=== PATIENT | male | born 1985 | race Caucasian/White ===

== ENCOUNTER 2016-11-03 00:14 | Emergency (ER) | payer MEDICAID ==
[~2016-11-03] VITALS: Ht 185.4 cm; Wt 86.2 kg
--- NOTE | 2016-11-03 00:30 | NUR ---
TO BED 1 AMBULATORY C/O INTERMITENT NONRADIATING CHEST PAIN SINCE YESTERDAY. PT DENIES PAIN OR DISCOMFORT AT THIS TIME. PT AAOX4 NO ACUTE DISTRESS NOTED, RESP EVEN AND UNLABORED. SKIN WARM NONDIAPHORETIC. PLACE PT ON CARDIAC MONITORING, CONTINUOUS POX. PENDING ER MD MARMOLEJO.
--- NOTE | 2016-11-03 00:38 | NUR ---
PRACHI GARCIA AT BEDSIDE TO FRANCIE ABARCA.
[2016-11-03] MEDS ORDERED: FAMOTIDINE (20 MG) 20 MG TABLET ONE (00:48)
[2016-11-03] MEDS ORDERED: MAG HYDROX/AL HYDROX/SIMETH 30 ML UDC ONE (00:48)
[2016-11-03] MEDS ORDERED: HYDROCODONE/APAP 5/325MG 1 EACH TABLET ONE (00:48)
[2016-11-03] MEDS ORDERED: ASPIRIN 81 MG TAB.CHEW ONE (00:49)
[2016-11-03] MEDS ORDERED: NITROGLYCERIN PACKET 1 GM PACKET ONE (00:49)
--- NOTE | 2016-11-03 00:51 | NUR ---
CALIBRATION TESTER AT BEDSIDE FOR BLOOD DRAW.
--- NOTE | 2016-11-03 00:54 | NUR ---
PT MEDICATED ORDERED.
[2016-11-03] MEDS ORDERED: MAG HYDROX/AL HYDROX/SIMETH 30 ML UDC PO ONE (01:00)
[2016-11-03] MEDS ORDERED: ASPIRIN 81 MG TAB.CHEW PO ONE (01:00)
[2016-11-03] MEDS ORDERED: HYDROCODONE/APAP 5/325MG 1 EACH TABLET PO ONE (01:00)
[2016-11-03] MEDS ORDERED: NITROGLYCERIN PACKET 1 GM PACKET TD ONE (01:00)
[2016-11-03] MEDS ORDERED: FAMOTIDINE (20 MG) 20 MG TABLET PO ONE (01:00)
[2016-11-03 01:05] LABS: BASOPHILS % (AUTO) 0.3 % (0.0-2.0); EOSINOPHILS # (AUTO) 0.1 /CMM (0.0-0.7); EOSINOPHILS % (AUTO) 1.9 % (0.0-6.0); HEMATOCRIT 41 % (39-51); HEMOGLOBIN 13.7 g/dL (13.5-17.5); LYMPHOCYTES # (AUTO) 1.7 /CMM (0.8-4.8); MEAN CORPUSCULAR HEMOGLOBIN 32 PG (26.0-33.0); MEAN CORPUSCULAR HGB CONC 34 g/dl (31.0-36.0); MEAN CORPUSCULAR VOLUME 93 fL (80-96); MONOCYTES # (AUTO) 0.4 /CMM (0.1-1.30); MONOCYTES % (AUTO) 6.8 % (2.0-12.0); NEUTROPHILS # (AUTO) 3.7 /CMM (1.8-8.9); PLATELET COUNT (AUTO) 203 /CMM (150-450); RDW COEFFICIENT OF VARIATION 12.7 (11.5-15.0); RED BLOOD CELL COUNT(AUTO) 4.34 MIL/uL (4.5-6.0); WHITE BLOOD COUNT (AUTO) 5.9 K/uL (4.3-11.0)
[2016-11-03 01:17] LABS: CALCIUM, SERUM 8.5 mg/dL (8.5-10.1); CARBON DIOXIDE 30 mmol/L (21-32); CHLORIDE 104 mmol/L (98-107); CREATININE 0.9 mg/dL (0.6-1.3); GLUCOSE 96 mg/dL (74-106); SODIUM SERUM 140 mmol/L (136-145); UREA NITROGEN, BLOOD 15 mg/dL (7-18)
[2016-11-03 01:26] LABS: TROPONIN I < 0.017 ng/mL (0.00-0.056)
[2016-11-03 01:30] LABS: ALANINE AMINOTRANSFERASE 101 U/L (12-78); ALBUMIN 3.8 g/dL (3.4-5.0); ALKALINE PHOSPHATASE 66 U/L (46-116); ASPARTATE AMINOTRANSFERASE 131 U/L (15-37); B-TYPE NATRIURETIC PEPTIDE 14 PG/ML (0-125); BILIRUBIN,DIRECT 0.1 mg/dL (0.0-0.2)
--- NOTE | 2016-11-03 02:45 | NUR ---
PRACHI GARCIA AT BEDSIDE TO RE-EVAL PT.
--- NOTE | 2016-11-03 03:55 | NUR ---
REPEAT TROPONIN DRAWN BY FINANCE MGR.
--- NOTE | 2016-11-03 04:36 | NUR ---
REPEAT TROPONIN RESULT RECEIVED. ER MD MADE AWARE. PENDING DISPOSITION.
--- NOTE | 2016-11-03 04:48 | NUR ---
Patient discharged to home in stable condition. Written and verbal after care instructions given. Patient verbalizes understanding of instruction. ambulatory with a steady gait noted. pt aaox4 no acute distress noted, resp even and unlabored. pt denies pain or discomfort at this time. advice pt not to drive or operate any machinery due to pt was given narcotic medicine. pt verbalize understanding.
[2016-11-03 04:50] VITALS: BP 109/58
== END 2016-11-03 04:50 | disposition home or self-care (01) ==
LOC: ER 00:17
DX: R07.9 Chest pain, unspecified (principal); F17.200 Nicotine dependence, unspecified, uncomplicated
CPT/HCPCS: 36415; 71010-TC; 80048-TC; 80076-TC; 83880; 84484-TC; 85025-TC; A4606; Z7610

== ENCOUNTER 2017-09-10 12:02 | Emergency (ER) | payer SELFPAY ==
[~2017-09-10] VITALS: Ht 177.8 cm; Wt 83.9 kg
--- NOTE | 2017-09-10 12:02 | NUR ---
[id number] FROM GYM: CHEST PAIN. ASA 162 GIVEN IN FIELD BY EMS. NAD NOTED. PT STATES HX OF ANXIETY AND TOOK "PREWORKOUT" PRIOR TO GYM. VSS. RR EVEN AND UNLABORED. PT PLACED ON MONITOR. MD AT BEDSIDE FOR EVAL.
[2017-09-10] MEDS ORDERED: LORAZEPAM 1 MG TABLET PO ONE (12:30)
[2017-09-10] MEDS ORDERED: LORAZEPAM 1 MG TABLET ONE (12:34)
[2017-09-10 12:41] LABS: BASOPHILS % (AUTO) 0.6 % (0.0-2.0); HEMATOCRIT 42 % (39-51); HEMOGLOBIN 14.8 g/dL (13.5-17.5); LYMPHOCYTES % (AUTO) 22.4 % (20.0-44.0); MEAN CORPUSCULAR HGB CONC 35 g/dl (31.0-36.0); MEAN CORPUSCULAR VOLUME 94 fL (80-96); MONOCYTES # (AUTO) 0.3 /CMM (0.1-1.30); MONOCYTES % (AUTO) 7.3 % (2.0-12.0); NEUTROPHILS # (AUTO) 3.1 /CMM (1.8-8.9); NEUTROPHILS % (AUTO) 68.7 % (43.0-81.0); PLATELET COUNT (AUTO) 198 /CMM (150-450); RDW COEFFICIENT OF VARIATION 11.9 (11.5-15.0); RED BLOOD CELL COUNT(AUTO) 4.48 MIL/uL (4.5-6.0); WHITE BLOOD COUNT (AUTO) 4.4 K/uL (4.3-11.0)
[2017-09-10 12:52] LABS: CARBON DIOXIDE 28 mmol/L (21-32); CHLORIDE 101 mmol/L (98-107); CREATININE 1.1 mg/dL (0.6-1.3); GLUCOSE 74 mg/dL (74-106); POTASSIUM 3.8 mmol/L (3.5-5.1); SODIUM SERUM 135 mmol/L (136-145); UREA NITROGEN, BLOOD 14 mg/dL (7-18)
[2017-09-10 12:57] LABS: ALANINE AMINOTRANSFERASE 19 U/L (12-78); ALBUMIN 3.5 g/dL (3.4-5.0); ALKALINE PHOSPHATASE 57 U/L (46-116); ASPARTATE AMINOTRANSFERASE 14 U/L (15-37); BILIRUBIN,DIRECT 0.2 mg/dL (0.0-0.2); BILIRUBIN,TOTAL 1.2 mg/dL (0.2-1.0); TOTAL PROTEIN, SERUM 6.9 g/dL (6.4-8.2)
[2017-09-10 13:00] LABS: TROPONIN I < 0.017 ng/mL (0.00-0.056)
[2017-09-10 13:31] LABS: D-DIMER 0.19 mg/L(FEU (0.17-0.50)
[2017-09-10 14:20] VITALS: BP 112/68
== END 2017-09-10 14:25 | disposition home or self-care (01) ==
LOC: ER 12:08
DX: R07.89 Other chest pain (principal); F41.0 Panic disorder [episodic paroxysmal anxiety]; F17.200 Nicotine dependence, unspecified, uncomplicated; Z60.2 Problems related to living alone
CPT/HCPCS: 36415; 71045; 80048; 80076; 84484; 85025; 85378; 85730; 93005; 99285; A4606; Z7610

== ENCOUNTER 2017-12-09 22:22 | Emergency (ER) | payer SELFPAY ==
[~2017-12-09] VITALS: Ht 182.9 cm; Wt 86.2 kg
[2017-12-09 23:27] LABS: APPEARANCE,URINE CLEAR (CLEAR); BILIRUBIN,URINE NEGATIVE (NEGATIVE); BLOOD, URINE NEGATIVE Ery/uL (NEGATIVE); COLOR,URINE YELLOW (YELLOW); KETONES,URINE TRACE (NEGATIVE); LEUKOCYTE ESTERASE ,URINE NEGATIVE (NEGATIVE); NITRITE, URINE NEGATIVE (NEGATIVE); PROTEIN,URINE NEGATIVE (NEGATIVE); UGLUCOSE NEGATIVE (NEGATIVE); UROBILINOGEN,URINE 0.2 EU/dL (0.2)
[2017-12-09 23:41] LABS: CALCIUM, SERUM 8.8 mg/dL (8.5-10.1); POTASSIUM 4.1 mmol/L (3.5-5.1)
[2017-12-09 23:43] LABS: BACTERIA,URINE None seen /HPF (None Seen); MUCUS,URINE Few /LPF (None Seen); RBC,URINE NONE SEEN /HPF (0-2); SQUAMOUS EPITHELIAL CELL,UR Few /HPF (None Seen); WBC,URINE 0-2 /HPF (0-3)
[2017-12-09 23:47] LABS: ALBUMIN 4.1 g/dL (3.4-5.0); BILIRUBIN,DIRECT 0.2 mg/dL (0.0-0.2); BILIRUBIN,TOTAL 1.1 mg/dL (0.2-1.0); TOTAL PROTEIN, SERUM 7.8 g/dL (6.4-8.2)
--- NOTE | 2017-12-09 23:50 | NUR ---
TO BED 10 AA/OX4 COMPLAINING OF LT GROIN AND TESTICULAR PAIN X 3 DAYS. AMBULATED TO BED WITH STEADY GAIT. MINIMAL SWELLING TO LT TESTICAL WITH PAIN ON PALPATION. NO S/S SOB. SKIN PINK, WARM, DRY. NO N/V/D. VSS. NAD. STABLE CONDITION. WILL CONTINUE TO MONITOR.
[2017-12-09 23:51] LABS: HEMATOCRIT 44 % (39-51); HEMOGLOBIN 15.4 g/dL (13.5-17.5); MEAN CORPUSCULAR VOLUME 95 fL (80-96); RED BLOOD CELL COUNT(AUTO) 4.63 MIL/uL (4.5-6.0); WHITE BLOOD COUNT (AUTO) 7.5 K/uL (4.3-11.0)
[2017-12-09 23:52] LABS: BASOPHILS % (AUTO) 0.3 % (0.0-2.0); EOSINOPHILS % (AUTO) 1.3 % (0.0-6.0); LYMPHOCYTES % (AUTO) 22.4 % (20.0-44.0); MEAN CORPUSCULAR HEMOGLOBIN 33 PG (26.0-33.0); MEAN CORPUSCULAR HGB CONC 35 g/dl (31.0-36.0); MONOCYTES % (AUTO) 5.5 % (2.0-12.0); NEUTROPHILS % (AUTO) 70.5 % (43.0-81.0); PLATELET COUNT (AUTO) 224 /CMM (150-450); RDW COEFFICIENT OF VARIATION 12.7 (11.5-15.0)
--- NOTE | 2017-12-09 23:57 | NUR ---
US AT BEDSIDE
[2017-12-10] MEDS ORDERED: AZITHROMYCIN 250 MG TABLET PO ONE (00:30)
[2017-12-10] MEDS ORDERED: CEFTRIAXONE 1 G VIAL IM ONE (00:30)
[2017-12-10] MEDS ORDERED: HYDROCODONE/APAP 10/325MG 1 EA TABLET PO ONE (00:30)
[2017-12-10] MEDS ORDERED: ONDANSETRON 4 MG TAB.RAPDIS SL ONE (00:30)
[2017-12-10] MEDS ORDERED: CEFTRIAXONE 1 G VIAL ONE (00:37)
[2017-12-10] MEDS ORDERED: AZITHROMYCIN 250 MG TABLET ONE (00:38)
[2017-12-10] MEDS ORDERED: HYDROCODONE/APAP 10/325MG 1 EA TABLET ONE (00:38)
[2017-12-10] MEDS ORDERED: ONDANSETRON 4 MG TAB.RAPDIS ONE (00:38)
--- NOTE | 2017-12-10 00:56 | NUR ---
Patient discharged to home in stable condition. Written and verbal after care instructions given. Patient verbalizes understanding of instruction. AMBULATED WITH STEADY GAIT. INSTRUCTED NOT TO OPERATE OR DRIVE HEAVY MACHINERY.
[2017-12-10 01:02] VITALS: BP 117/76
== END 2017-12-10 01:03 | disposition home or self-care (01) ==
LOC: ER 22:23
DX: R10.12 Left upper quadrant pain (principal); R10.32 Left lower quadrant pain; N45.1 Epididymitis; F17.200 Nicotine dependence, unspecified, uncomplicated; F41.9 Anxiety disorder, unspecified; Z60.2 Problems related to living alone
CPT/HCPCS: 36415; 74176; 76870; 80048; 80076; 81001; 83690; 85025; 87491; 87591; 96372; 99285; 99406; A4606; J0696; Q0162; Z7610; 81000-TC